=== PATIENT | female | born 1965 | race Caucasian/White ===

== ENCOUNTER 2020-09-29 14:39 | Outpatient (CLI) | payer MEDICARE, SELFPAY ==
--- NOTE | 2020-09-29 14:45 | CT_ITS ---
WS: [id number] LDCT LUNG CANCER SCREENING HISTORY: HX OF TOBACCO USE TECHNIQUE: Axial imaging performed from the apices to 1 cm below the costophrenic angles. Coronal and sagittal reformats are submitted with axial MIP series. All CT scans at [facility] use at least one of these dose optimization techniques: automated exposure control; mA and/or kV adjustment per patient size (includes targeted exams where dose is matched to clinical indication); or iterativ e reconstruction. DLP: 55.38 mGy.cm DIvol: 1.58 mGy COMPARISON: None available. Diagnostic quality: Satisfactory Lung Nodules: 4 mm solid nodule in the anterior RIGHT lower lobe, image 169 of series 2. 3 mm irregul ar nodule RIGHT upper lobe, image 74 of series 3. Lungs: Mild interstitial thickening in the periphery of the upper lung mullins. Heart: Other findings: Small hiatal hernia. Incompletely visualized low-attenuation mass measuring 3.8 x 4.1 cm along the falciform ligament was not present on the prior CT from 2007. CT/CT lung screening [id number] IMPRESSION: LUNG-RADS: 2S-Benign Appearance or Behavior with Significant Findings FOLLOW UP: 12 Month: Continue annual screening with LDCT OTHER FINDINGS (S MODIFIER): Incompletely visualized new cystic mass along the falciform ligament. Recommend RIGHT upper quadrant ultrasound for further evalu ation.
== END 2020-09-29 14:40 | disposition home or self-care (01) ==
LOC: CT 14:42
PROVIDERS: PCP Family Medicine; Visit Provider Nurse Practitioner Family
DX: Z12.2 Encounter for screening for malignant neoplasm of respiratory organs (principal); Z87.891 Personal history of nicotine dependence; K44.9 Diaphragmatic hernia without obstruction or gangrene
CPT/HCPCS: 71271

== ENCOUNTER 2020-12-14 07:03 | Outpatient (CLI) | payer MEDICARE, SELFPAY ==
--- NOTE | 2020-12-14 07:11 | US_ITS ---
WS: [id number] Complete ABDOMINAL ULTRASOUND HISTORY: HIATAL HERNIA COMPARISON: None available. Liver: 17.2 cm in length. Liver is very slightly enlarged. No bile duct dilatation. There are multipl e cystic masses within the liver. 2 adjacent cysts in the LEFT lobe of the liver are by thi n wall or septation. The largest cyst measures 4.4 x 4.3 x 5.0 cm. There are additional smaller cysts within the liver. No solid mass. Gallbladder: Normally distended. A tiny amount of sludge or fine gravel present in the lumen. No bile duct dilatation. Gallbladder wall thickness: 0.2 cm. Pancreas: Normal size and echogenicity. CBD: 0.7 cm. Common bile duct is measuring top normal to slightly enlarged. Right kidney: 9.3 cm x 4.9 cm x 3.6 cm. No mass, cortical thickening or hydronephrosis. Left kidney: 9.9 cm x 4.3 cm x 4.3 cm. No mass, cortical thickening or hydronephrosis. Spleen: Normal size and echogenicity. Abdominal aorta and IVC are within normal limits. No ascites. US/US abdomen complete* [id number] IMPRESSION: 1. Very small amount of sludge or fine gravel in the gallbladder. No Galvez's sign or gallbladder wall thickening. 2. Numerous hepatic cysts. No solid mass. 3. Common bile duct is top normal size to slightly enlarged. If there are abno rmal liver function studies consider follow-up MRCP. No abnormality noted at th e pancreatic head.
== END 2020-12-14 07:04 | disposition home or self-care (01) ==
PROVIDERS: PCP Family Medicine; Visit Provider Family Medicine
DX: K44.9 Diaphragmatic hernia without obstruction or gangrene (principal); K76.89 Other specified diseases of liver
CPT/HCPCS: 76700

== ENCOUNTER 2021-02-16 14:01 | Outpatient (CLI) | payer MEDICARE, SELFPAY ==
--- NOTE | 2021-02-16 14:07 | MM_ITS ---
WS: [id number] ADDITIONAL VIEWS RIGHT MAMMOGRAM RIGHT BREAST ULTRASOUND HISTORY: ABNORMAL MAMMOGRAM COMPARISON: 06/23/2020, 06/08/2020, 11/03/2018 and 10/16/2017 RIGHT MAMMOGRAM: Spot compression views and true ML. 5 mm nodule posterior intramammary fat is again identified. This nodule is just medial to the nipple line and posterior. Not significantly changed in size since 06/23/2020. RIGHT BREAST ULTRASOUND 2-D and color Doppler imaging submitted. Ovoid hypoechoic nodule in the posterior RIGHT breast at 1:00, 2 cm from the nipple. This is along th e chest wall and most consistent with a cyst. Does correspond in size and location to the mammographi c abnormality. MM/[place] [id number] IMPRESSION: BI-RADS: 2-Benign FOLLOW UP: 6 Month Follow-up Patient to return to annual screening mammography in June 2021.
== END 2021-02-16 14:02 | disposition home or self-care (01) ==
LOC: RADSHAW 14:05
PROVIDERS: PCP Family Medicine; Visit Provider Family Medicine
DX: R92.8 Other abnormal and inconclusive findings on diagnostic imaging of breast (principal)
CPT/HCPCS: 76642; 77065

== ENCOUNTER 2021-04-25 14:47 | Outpatient (CLI) | payer SELFPAY ==
--- NOTE | 2021-04-25 14:58 | XR_ITS ---
WS: [id number] LUMBAR SPINE: 3 VIEWS TECHNIQUE: AP, lateral and L5-S1 spot. HISTORY: LUMBAR RADICULOPATHY, HIP PAIN COMPARISON: 06/21/2009 Stable anterior compression fracture at L1 by 10%. No additional fractures. Posterior alignment is no rmal. Moderate disc space narrowing and desiccation at L5-S1 with mild facet joint arthritis. SI joints are symmetric bilaterally. No soft tissue abnormalities. XR/XR lumbar spine 2-3V* [id number] IMPRESSION: 1. Stable chronic 10% L2 compression fracture. 2. Moderate disc space narrowing and degeneration at L5-S1 and facet arthritis .
--- NOTE | 2021-04-25 14:58 | XR_ITS ---
WS: [id number] DEXA (DUAL ENERGY X-RAY ABSORPTIOMETRY) Bone mineral density was performed using a [employer] machine. HISTORY: POST MENOPAUSAL, LUMBAR RADICULOPATHY COMPARISON: 07/14/2013 Lumbar spine BMD (L1-L4): 1.020 g/cm2 T score: -1.3 Z score: -0.5 Total hip BMD: Left: 0.914 g/cm2. T score: -0.7 Z score: -0.1 Right: 0.914 g/cm2. T score: -0.7 Z score: -0.1 10 year probability of a major osteoporotic fracture is 7%. Compared to the prior study from 07/14/2013. Lumbar spine bone mineral density has decreased by 6.0%. Bilateral hips bone mineral density has decreased by 3.0%. XR/XR DEXA axial skeleton* [id number] IMPRESSION: OSTEOPENIA based upon the WHO classification for females. Significant decrease in bone mineral density within the lumbar spine and hips s alejandra the prior study.
--- NOTE | 2021-04-25 14:58 | XR_ITS ---
WS: [email or web address] RIGHT HIP HISTORY: HIP PAIN COMPARISON: None available. Right hip: No acute fracture or dislocation. No significant degeneration or joint space narrowing. Normal soft tissues. XR/XR hip RT 2-3V wo/w pel* [id number] IMPRESSION: 1. No hip fracture. 2. Negative RIGHT hip radiograph.
== END 2021-04-25 14:48 | disposition home or self-care (01) ==
PROVIDERS: PCP Family Medicine; Visit Provider Family Medicine
DX: M54.16 Radiculopathy, lumbar region (principal); M25.559 Pain in unspecified hip; Z78.0 Asymptomatic menopausal state; S32.029A Unspecified fracture of second lumbar vertebra, initial encounter for closed fracture; X58.XXXA Exposure to other specified factors, initial encounter; M47.817 Spondylosis without myelopathy or radiculopathy, lumbosacral region; M85.80 Other specified disorders of bone density and structure, unspecified site
CPT/HCPCS: 72100; 73502; 77080

== ENCOUNTER 2022-01-14 14:55 | Outpatient (CLI) | payer BC, SELFPAY ==
[2022-01-14 16:02] LABS: Basophils # 0.1 10^3/uL (0.0-0.1); Basophils % 0.6 %; Eosinophils # 0.1 10^3/uL (0.0-0.8); Eosinophils % 1.3 %; Hematocrit 43.1 % (37.0-47.0); Hemoglobin 14.7 g/dL (11.5-15.3); Lymphocytes # 3.1 10^3/uL (0.8-4.8); Lymphocytes % 34.3 %; Mean Corpuscular HGB Conc 34.1 g/dL (30.0-36.0); Mean Corpuscular Hemoglobin 31.1 pg (28.0-34.0); Mean Corpuscular Volume 91.3 fl (81-99); Mean Platelet Volume 9.5 fL (7.4-10.4); Monocytes # 0.5 10^3/uL (0.2-0.9); Monocytes % 5.7 %; Neutrophils # 5.22 10^3/uL (1.8-7.7); Neutrophils % 57.8 %; Nucleated Red Blood Cells % 0 %; Platelet Count 359 10^3/cmm (130-400); Red Blood Count 4.72 10^6/uL (4.1-5.3); Red Cell Distribution Width 12.8 % (12.1-15.1)
[2022-01-14 16:35] LABS: Albumin Level 4.7 g/dL (3.5-5.2); Alkaline Phosphatase 89 IU/L (35-105); Blood Urea Nitrogen 15 mg/dL (6-20); Calcium 10.7 mg/dL (8.5-10.5); Carbon Dioxide 27 mmol/L (22-29); Chloride 101 mmol/L (98-107); Chol HDL Ratio 3.48 mg/dL (0.0-4.40); Cholesterol 219 mg/dL (0-200); Globulin 2.6 g/dL (1.3-4.6); Glomerular Filtration Rate 64.3 mL/min (90-130); Glucose 120 mg/dL (65-115); HDL Cholesterol 63 mg/dL (60-100); LDL Cholesterol Calculated 86 mg/dL (50-129); LDL HDL Ratio 1.37 RATIO (0.00-3.22); Osmolality Calculated 288 mOsm/kg (285-295); Sodium 138 mmol/L (136-145); Thyroid Stimulating Hormone 1.67 uIU/mL (0.27-4.20); Total Bilirubin 0.2 mg/dL (0.15-1.2); Total Protein 7.3 g/dL (6.6-8.7); Triglycerides 352 mg/dL (0-150)
[2022-01-14 16:47] LABS: Anion Gap 14.1 (5-19); Potassium 4.1 mmol/L (3.5-5.1)
[2022-01-14 16:48] LABS: Alanine Aminotransferase 22 U/L (0-33); Aspartate Amino Transferase 20 U/L (0-32)
== END 2022-01-14 14:56 | disposition home or self-care (01) ==
PROVIDERS: PCP Family Medicine; Visit Provider Family Medicine
DX: Z76.89 Persons encountering health services in other specified circumstances (principal); Z13.220 Encounter for screening for lipoid disorders; Z13.6 Encounter for screening for cardiovascular disorders
CPT/HCPCS: 36415; 80053; 80061; 84443; 85025

== ENCOUNTER 2022-06-19 12:02 | Outpatient (CLI) | payer BC, SELFPAY ==
--- NOTE | 2022-06-19 12:13 | MM_ITS ---
WS: [email or web address] BILATERAL SCREENING DIGITAL TOMOSYNTHESIS MAMMOGRAM WITH CAD HISTORY: Breast CA screening. COMPARISON: 02/16/2021 and 06/08/2020 Bilateral CC and MLO views with tomosynthesis and synthetic mammography submitted. Computer aided det ection analyzed. Breast composition: There are scattered areas of fibroglandular density. No suspicious masses, microc alcifications or architectural distortion. Benign calcification lateral RIGHT breast. MM/[place] [id number] IMPRESSION: BI-RADS: 2-Benign FOLLOW UP: 1 Year Follow-up
== END 2022-06-19 12:03 | disposition home or self-care (01) ==
LOC: RAD 12:05
PROVIDERS: PCP Family Medicine; Visit Provider Family Medicine
DX: Z12.31 Encounter for screening mammogram for malignant neoplasm of breast (principal)
CPT/HCPCS: 77063; 77067

== ENCOUNTER → 2022-12-04 09:30 | Outpatient (BNVA) | payer BC, SELFPAY | PROVIDERS: PCP Family Medicine; Visit Provider Family Medicine | DX: E78.2 Mixed hyperlipidemia (principal); F32.9 Major depressive disorder, single episode, unspecified; L65.9 Nonscarring hair loss, unspecified; N18.9 Chronic kidney disease, unspecified; E83.52 Hypercalcemia | CPT/HCPCS: 80053; 80061; 82306; 83036; 84443; 85025 ==

== ENCOUNTER 2023-02-26 08:42 | Outpatient (CLI) | payer BC, SELFPAY ==
--- NOTE | 2023-02-26 08:49 | XR_ITS ---
WS: [email or web address] EXAMINATION: XR chest 2V* [id number] REASON FOR EXAM: Chest pain COMPARISON: None available. ORDER DATE: 02/26/2023 8:49 AM FINDINGS: The lungs are clear of infiltrate. The cardiac and mediastinal outlines are unremarkable. There ar e no significant pleural effusions . No significant abnormalities are noted in the spine or remainder of the bony thorax. IMPRESSION: NO ACUTE PULMONARY CHANGE.
== END 2023-02-26 08:43 | disposition home or self-care (01) ==
PROVIDERS: PCP Family Medicine; Visit Provider Family Medicine
DX: R07.89 Other chest pain (principal)
CPT/HCPCS: 71046

== ENCOUNTER 2023-09-15 09:02 | Outpatient (CLI) | payer BC, SELFPAY ==
--- NOTE | 2023-09-15 09:00 | MM_ITS ---
WS: [email or web address] BILATERAL SCREENING DIGITAL TOMOSYNTHESIS MAMMOGRAM WITH CAD HISTORY: Screening test. COMPARISON: 06/19/2022, 02/16/2021 Bilateral CC and MLO views with tomosynthesis and synthetic mammography submitted. Computer aided det ection analyzed. Breast composition: There are scattered areas of fibroglandular density. No suspicious masses, microc alcifications or architectural distortion. Benign calcification 9:00 RIGHT breast. IMPRESSION: MM/[place] [id number] BI-RADS: 2-Benign FOLLOW UP: 1 Year Follow-up
== END 2023-09-15 09:03 | disposition home or self-care (01) ==
PROVIDERS: PCP Family Medicine; Visit Provider Family Medicine
DX: Z12.31 Encounter for screening mammogram for malignant neoplasm of breast (principal)
CPT/HCPCS: 77063; 77067

== ENCOUNTER → 2024-08-05 11:00 | Outpatient (BNVA) | payer OTHER, SELFPAY | PROVIDERS: PCP Family Medicine; Visit Provider Family Medicine | DX: R79.89 Other specified abnormal findings of blood chemistry (principal); F33.41 Major depressive disorder, recurrent, in partial remission; E78.2 Mixed hyperlipidemia; N18.2 Chronic kidney disease, stage 2 (mild); E55.9 Vitamin D deficiency, unspecified | CPT/HCPCS: 80053; 80061; 82306; 82607; 82746; 84443; 85025 ==

== ENCOUNTER → 2025-03-08 14:05 | Outpatient (BNVA) | payer MEDICARE, SELFPAY | PROVIDERS: PCP Family Medicine; Visit Provider Family Medicine | DX: E83.42 Hypomagnesemia (principal); E78.2 Mixed hyperlipidemia; R79.89 Other specified abnormal findings of blood chemistry; N18.2 Chronic kidney disease, stage 2 (mild); F33.41 Major depressive disorder, recurrent, in partial remission; E65 Localized adiposity | CPT/HCPCS: 80053; 80061; 82306; 82533; 82607; 82746; 83036; 83735; 84443; 85025 ==

== ENCOUNTER 2025-03-11 10:01 | Outpatient (CLI) | payer MEDICARE, SELFPAY ==
--- NOTE | 2025-03-11 10:00 | MM_ITS ---
WS: [id number] BILATERAL SCREENING DIGITAL TOMOSYNTHESIS MAMMOGRAM WITH CAD HISTORY: Z12.31 - Encounter for screening mammogram for malignant ... COMPARISON: 09/15/2023, 06/19/2022 Bilateral CC and MLO views with tomosynthesis and synthetic mammography submitted. Computer aided detection analyzed. Breast composition: There are scattered areas of fibroglandular density. No suspicious masses, microcalcifications or architectural distortion. Benign calcifications in each breast. MM/MM scr tomosynthesis [id number] IMPRESSION: BI-RADS: 2 - Benign. FOLLOW UP: 1 Year Follow-up
== END 2025-03-11 10:02 | disposition home or self-care (01) ==
LOC: RAD 10:02
PROVIDERS: PCP Family Medicine; Visit Provider Family Medicine
DX: Z12.31 Encounter for screening mammogram for malignant neoplasm of breast (principal); R92.323 Mammographic fibroglandular density, bilateral breasts; R92.1 Mammographic calcification found on diagnostic imaging of breast
CPT/HCPCS: 77063; 77067